=== PATIENT | female | born 1970 | race Caucasian/White ===

== ENCOUNTER 2016-07-17 15:53 | Emergency (ER) | payer SELFPAY ==
[~2016-07-17] VITALS: Ht 162.6 cm; Wt 70.8 kg
[2016-07-17 16:48] LABS: UA SPECIFIC GRAVITY <=1.005 (1.005-1.035); microscopic required? YES; urine erythrocyte 1+ (NEGATIVE)
[2016-07-17 17:45] VITALS: BP 110/73
== END 2016-07-17 17:45 | disposition home or self-care (01) ==
LOC: ED 15:53
PROVIDERS: Emergency Medicine
DX: M54.5 Low back pain (principal)
CPT/HCPCS: J1885

== ENCOUNTER 2018-05-16 14:30 | Emergency (ER) | payer OTHER | END 2018-05-16 19:38 | disposition home or self-care (01) | LOC: ED 14:30 ==

== ENCOUNTER 2018-11-08 19:50 | Emergency (ER) | payer OTHER ==
[~2018-11-08] VITALS: Ht 162.6 cm; Wt 76.8 kg
[2018-11-08 19:53] VITALS: Ht 162.6 cm; Wt 76.8 kg
[2018-11-08 20:45] LABS: BASOPHIL % 0.6 % (0-2); PLATELET COUNT 209 x10^3mcL (130-400); RED CELL DISTRIBUTION WIDTH 13.9 % (11.5-14.5)
[2018-11-08 21:00] LABS: CALCIUM 8.5 mg/dL (8.5-10.1); CARBON DIOXIDE 30.8 mmol/L (21-32); CHLORIDE SERUM 109 mmol/L (98-107); CREATININE SERUM 0.7 mg/dL (0.6-1.0); GFR1 > 60 mL/min; GLUCOSE SERUM 106 mg/dL (74-106); POTASSIUM SERUM 3.6 mmol/L (3.5-5.1); SODIUM SERUM 146 mmol/L (136-145)
[2018-11-08 21:08] LABS: ALBUMIN 3.4 g/dL (3.4-5.0); ALKALINE PHOSPHATASE 72 U/L (46-116); ALT/SGPT 30 U/L (14-59); AST/SGOT 17 U/L (15-37); BILIRUBIN TOTAL 0.3 mg/dL (0.20-1.00); MAGNESIUM 2.2 mg/dL (1.8-2.4); TOTAL PROTEIN, SERUM 6.5 g/dL (6.4-8.2)
[2018-11-08 22:04] VITALS: BP 126/69
== END 2018-11-08 22:04 | disposition home or self-care (01) ==
LOC: ED 19:50
PROVIDERS: Emergency Medicine
DX: R42 Dizziness and giddiness (principal); R11.0 Nausea; H93.12 Tinnitus, left ear
CPT/HCPCS: 36415; J8597; Q0162

== ENCOUNTER 2020-01-06 12:25 | Emergency (ER) | payer OTHER ==
[~2020-01-06] VITALS: Ht 162.6 cm; Wt 77.1 kg
[2020-01-06 13:15] VITALS: BP 116/72; Ht 162.6 cm; Wt 77.1 kg
== END 2020-01-06 14:21 | disposition home or self-care (01) ==
LOC: ED 12:25
DX: H00.016 Hordeolum externum left eye, unspecified eyelid (principal); L20.9 Atopic dermatitis, unspecified